=== PATIENT | female | born 1970 | race African-American/Black ===

== ENCOUNTER 2024-04-03 21:58 | Emergency (ER) | payer BC, OTHER ==
[~2024-04-03] VITALS: Ht 167.6 cm; Wt 66.0 kg
[2024-04-03 22:08] VITALS: TEMP 98.8; O2SAT 100
[2024-04-04] MEDS: ONDANSETRON 4MG ODT PO STA (00:10)
[2024-04-04] MEDS: KETOROLAC 30MG/ML VIAL IM STA (00:10)
[2024-04-04 00:16] LABS: BASOPHILS % 0.5 % (0.0-2.0); HEMATOCRIT. 43.1 % (36.0-48.0); HEMOGLOBIN. 14.4 g/dL (12.0-16.0); LYMPHOCYTES % 12.4 % (20.0-50.0); MEAN CORPUSCULAR HEMOGLOBIN 33.2 pg (28.0-32.0); MEAN CORPUSCULAR HGB CONC 33.3 g/dL (31.0-37.0); MEAN CORPUSCULAR VOLUME 99.6 fL (81.0-99.0); MEAN PLATELET VOLUME 7.8 fl (7.4-10.4); NEUTROPHILS % 84.1 % (40.0-76.0); PLATELET 276 x1000/uL (130-400); RED BLOOD CELL COUNT 4.32 mill/uL (4.2-5.4); RED CELL DISTRIBUTION WIDTH 15.2 % (11.6-14.6); WHITE BLOOD COUNT 12.7 x1000/uL (4.5-11.0)
[2024-04-04 00:21] LABS: CHLORIDE 107 mEq/L (98-107); POTASSIUM 3.7 mEq/L (3.5-5.1); SODIUM 138 mEq/L (136-145)
[2024-04-04 00:22] LABS: CALCIUM 10.1 mg/dL (8.7-10.4); CARBON DIOXIDE 23 mEq/L (21-32)
[2024-04-04 00:25] LABS: PROTHROMBIN TIME 10.8 sec (9.6-11.0)
[2024-04-04] MEDS: MAGNESIUM/ALUMINUM HYDROXIDE/SIMETHICONE 30ML UDC PO STA (00:26)
[2024-04-04 00:27] LABS: CREATININE 0.7 mg/dL (0.6-1.0); GLUCOSE 134 mg/dL (70-105); UREA NITROGEN BLOOD 9 mg/dL (9-23)
[2024-04-04] MEDS: ACETAMINOPHEN 325MG TABLET PO STA (00:27)
[2024-04-04 00:29] LABS: ALANINE AMINOTRANSFERASE 16 IU/L (10-49); ALBUMIN 4.6 g/dL (3.2-4.8); ASPARTATE AMINOTRANSFERASE 19 IU/L (<34); BILIRUBIN TOTAL 0.9 mg/dL (0.1-1.0); PROTEIN TOTAL 8.1 g/dL (6.0-8.3)
[2024-04-04 00:36] LABS: TROPONIN I HIGH SENSITIVITY < 4 ng/L (3.0-34)
[2024-04-04 02:24] LABS: TROPONIN I HIGH SENSITIVITY < 4 ng/L (3.0-34)
[2024-04-04] MEDS ORDERED: ONDA-239 PO (02:45)
[2024-04-04] MEDS: HALOPERIDOL LACTATE 5MG/ML VIAL IM ONE (03:00)
[2024-04-04 03:30] VITALS: BP 139/82; PULSE 76; RESP 19; O2SAT 100
== END 2024-04-04 04:38 | disposition home or self-care (01) ==
LOC: ER 21:58
DX: R11.2 Nausea with vomiting, unspecified (principal); I10 Essential (primary) hypertension; E78.00 Pure hypercholesterolemia, unspecified
CPT/HCPCS: 99285; 71045; 80053; 85025; 85610; 84484 ×2; 36415 ×2; 93005; 96372; Q0162; J1885